=== PATIENT | male | born 1995 | race American Indian/Alaskan Native ===

== ENCOUNTER 2018-01-26 15:09 | Emergency (ER) | payer SELFPAY ==
[2018-01-26 15:38] VITALS: BP 122/73
--- NOTE | 2018-01-26 17:09 | Emergency Department Report ---
ED Male HPI - General Chief complaint: Urogenital-Male Stated complaint: TESTICULS IN PAIN Time Seen by Provider: 01/26/18 16:57 Source: patient Mode of arrival: Ambulatory Limitations: No Limitations - History of Present Illness Initial comments: This is a 22-year-old -[place] male who presents with left testicular pain and swelling for the past 2 weeks. Patient states symptoms increased over the last week. Patient reports pain is worse while sitting and walking. She is sexually active with women. States he has not been exposed to an STD. Denies discharge, low back pain, pelvic pain, dysuria, frequency, urgency, change in voiding pattern. MD Complaint: testicle pain (left testicular pain), testicle swelling (left) Onset/Timin -: week(s) Location: left testicle Radiation: none Severity: mild Severity scale (0 -10): 3 Quality: aching Consistency: intermittent Improves with: none Worsens with: palpation, movement swelling. denies: discharge, mass, rash, urinary retention, blood in urine, dysuria, fever, nausea/vomiting, incontinence - Related Data Sexually active: Yes Previous Rx's Medication Instructions Recorded Last Taken Type Doxycycline Hyclate [Doxycycline 100 mg PO Q12HR #28 tab 01/26/18 Unknown Rx Hyclate TAB] Allergies Allergy/AdvReac Type Severity Reaction Status Date / Time No Known Allergies Allergy Verified 01/26/18 15:38 ED Review of Systems ROS: Stated complaint: TESTICULS IN PAIN Other details as noted in HPI Constitutional: denies: chills, fever Respiratory: denies: cough, shortness of breath, wheezing Cardiovascular: denies: chest pain, palpitations Genitourinary: testicular pain (left testicular pain and swelling). denies: urgency, dysuria, frequency, hematuria, discharge, testicular mass Skin: denies: rash, lesions Neurological: denies: headache, weakness, paresthesias Psychiatric: denies: anxiety, depression ED Past Medical Hx - Past Medical History Previous Medical History?: No - Surgical History Past Surgical History?: No - Social History Smoking Status: Never Smoker Substance Use Type: Marijuana - Medications Home Medications: Home Medications Medication Instructions Recorded Confirmed Last Taken Type Doxycycline Hyclate [Doxycycline 100 mg PO Q12HR #28 tab 01/26/18 Unknown Rx Hyclate TAB] ED Physical Exam - General Limitations: No Limitations General appearance: alert, in no apparent distress - Respiratory Respiratory exam: Present: normal lung sounds bilaterally. Absent: respiratory distress - Cardiovascular Cardiovascular Exam: Present: regular rate, normal rhythm. Absent: systolic murmur, diastolic murmur, rubs, gallop - GI/Abdominal GI/Abdominal exam: Present: soft, normal bowel sounds - exam: Present: testicular tenderness (left testicular swelling and tenderness ), scrotal swelling, circumcision. Absent: urethral discharge, vertical testicular lie External exam: Present: normal external exam. Absent: erythema, swelling, lesions, lacerations, ecchymosis, bleeding - Back Exam Back exam: Present: normal inspection. Absent: CVA tenderness (R), CVA tenderness (L) - Neurological Exam Neurological exam: Present: alert, oriented X3 - Psychiatric Psychiatric exam: Present: normal affect, normal mood - Skin Skin exam: Present: warm, dry, intact, normal color. Absent: rash ED Course Vital Signs 01/26/18 15:35 Temperature 98.6 F Pulse Rate 57 L Respiratory 18 Rate Blood Pressure 122/73 O2 Sat by Pulse 99 Oximetry ED Medical Decision Making - Radiology Data Radiology results: report reviewed EXAM: US TESTICULAR DOPPLER COMP HISTORY: pain and swelling in the left testicle for 2 weeks. Worse today. TECHNIQUE: Ultrasound of scrotum PRIORS: None. FINDINGS: Examination of the testicles demonstrates both to be normal in size and normal and homogeneous in echogenicity with normal blood flow bilaterally. No focal abnormality is noted in either testicle. The right testicle measures 2.8 x 1.8 x 2.4 cm and the left measures 2.5 x 1.8 x 2.4 cm. Both epididymides appear normal in size and echogenicity with normal blood flow. No focal abnormality is noted. However, there are bilateral varicoceles, much larger on the left than the right. A small left hydrocele is nonspecific. IMPRESSION: Negative testicular ultrasound. Bilateral varicoceles, much larger on the left than the right. - Medical Decision Making This is a 22-year-old -[place] male who presents with left testicular pain and swelling for 2 weeks. Patient was examined by me. Vitals are stable and in no acute distress. Urinalysis and GC obtained. Normal urinalysis, GC pending. Testicular ultrasound and dictated radiologist. Report review, Negative testicular ultrasound. Bilateral varicoceles, much larger on the left than the right. Empirically treated with Rocephin 250 mg IM and azithromycin 1 g by mouth. Start doxycycline 100 mg po bid x 14 days. Referrals to urology. Discharged home in stable condition. Discussed prevention options. F/U with PCP or Health Department. Critical care attestation.: If time is entered above; I have spent that time in minutes in the direct care of this critically ill patient, excluding procedure time. ED Disposition Clinical Impression: Testicular/scrotal pain, Bilateral varicoceles Disposition: TO HOME OR SELFCARE Is pt being admited?: No Does the pt Need Aspirin: No Condition: Stable Instructions: Varicocele (ED), Testicle Pain (ED) Additional Instructions: Avoid drinking alcohol while taking antibiotics and for 24 hours after completion. Continue safe sexual intercourse. Follow up with Primary Care Provider or health department. Prescriptions: Doxycycline Hyclate [Doxycycline Hyclate TAB] 100 mg PO Q12HR #28 tab Referrals: [facility] [Outside] - 3-5 Days [facility] [Outside] - 3-5 Days [facility] [Outside] - 3-5 Days [facility] [Provider Group] - 3-5 Days Forms: Work/School Release Form(ED) Time of Disposition: 18:19 Print Language: FILIPINO
[2018-01-26 17:12] LABS: Bilirubin,Urine NEG (Negative); Blood,Urine NEG (Negative); Color,Urine Yellow (Yellow); Mucus,Urine FEW /HPF; Protein,Urine <15 mg/dL mg/dL (Negative)
--- NOTE | 2018-01-26 17:53 | Ultrasound Report ---
FINAL REPORT EXAM: US TESTICULAR DOPPLER COMP HISTORY: pain and swelling in the left testicle for 2 weeks. Worse today. TECHNIQUE: Ultrasound of scrotum PRIORS: None. FINDINGS: Examination of the testicles demonstrates both to be normal in size and normal and homogeneous in echogenicity with normal blood flow bilaterally. No focal abnormality is noted in either testicle. The right testicle measures 2.8 x 1.8 x 2.4 cm and the left measures 2.5 x 1.8 x 2.4 cm. Both epididymides appear normal in size and echogenicity with normal blood flow. No focal abnormality is noted. However, there are bilateral varicoceles, much larger on the left than the right. A small left hydrocele is nonspecific. IMPRESSION: Negative testicular ultrasound. Bilateral varicoceles, much larger on the left than the right.
[2018-01-26] MEDS ORDERED: XYLOCAINE 1% MPF 5 mL INFILTRATI ONE (18:17)
[2018-01-26] MEDS ORDERED: ROCEPHIN IM ONE (18:17)
[2018-01-26] MEDS ORDERED: ZITHROMAX PO ONE (18:17)
== END 2018-01-26 19:08 | disposition home or self-care (01) ==
LOC: ED 15:09
DX: I86.1 Scrotal varices (principal); F12.10 Cannabis abuse, uncomplicated
CPT/HCPCS: 81001; 87591; 93975; 96372; 99284; J0696